=== PATIENT | male | born 1985 | race Hispanic/Latino ===

== ENCOUNTER 2016-04-12 04:29 | Emergency (ER) | payer OTHER ==
--- NOTE | 2016-04-12 05:28 | XRay Report ---
FINAL REPORT EXAM: XR KNEE 1-2V RT HISTORY: inury right knee running TECHNIQUE: 3 views of the right knee. PRIORS: None FINDINGS: Joint spaces are maintained. No fracture or dislocation. No joint effusion. Prepatellar soft tissue swelling. IMPRESSION: 1. Prepatellar soft tissue swelling.
[2016-04-12] MEDS ORDERED: NORCO 7.5/325 PO ONE (05:46)
[2016-04-12] MEDS ORDERED: TRIPLE ANTIBIOTIC TP ONE (05:50)
--- NOTE | 2016-04-12 05:52 | Emergency Department Report ---
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 Patient states he did not receive any injury to the head. Patient had no loss of consciousness. Patient was able to get up after incident. Patient states shortly after that he started to experience some pain on his right knee. Patient states swelling occurred several hours after that. Patient denies fevers/chills/nausea/vomiting/abdominal pain/chest pain or any other problems. ED Past Medical Hx - Past Medical History Previous Medical History?: No - Surgical History Past Surgical History?: No - Social History Smoking Status: Current Every Day Smoker Substance Use Type: None - Medications Home Medications: Home Medications Medication Instructions Recorded Confirmed Last Taken Type Acetaminophen/Codeine [Tylenol #3] 1 tab PO Q6H PRN #14 tab 04/12/16 Unknown Rx Cyclobenzaprine HCl [Flexeril 5 MG 5 mg PO QHS #20 tab 04/12/16 Unknown Rx TAB] Ibuprofen [Motrin] 800 mg PO Q8HR PRN #40 tablet 04/12/16 Unknown Rx ED Review of Systems ROS: Stated complaint: KNEE INJURY Other details as noted in HPI Constitutional: denies: chills, fever, malaise, weakness Eyes: denies: eye pain, eye discharge, vision change ENT: denies: ear pain, throat pain, dental pain, hearing loss, epistaxis, congestion Respiratory: denies: cough, shortness of breath, SOB with exertion, SOB at rest , wheezing Cardiovascular: denies: chest pain, palpitations Endocrine: no symptoms reported Gastrointestinal: denies: abdominal pain, nausea, vomiting, diarrhea Genitourinary: denies: urgency, dysuria, testicular pain, testicular mass Musculoskeletal: joint swelling, arthralgia. denies: back pain, myalgia Skin: denies: rash, lesions Neurological: denies: headache, weakness, numbness, paresthesias, confusion, abnormal gait Psychiatric: denies: anxiety, depression, homicidal thoughts Hematological/Lymphatic: denies: easy bleeding, easy bruising, swollen glands Physical Exam - Physical Exam Vital Signs: Vital Signs 04/12/16 04:33 Temperature 97.2 F L Pulse Rate 102 H Respiratory 16 Rate Blood Pressure 152/90 O2 Sat by Pulse 100 Oximetry Physical Exam: GENERAL: Alert and oriented x3, no apparent distress, Normal Gait, atraumatic. HEAD: Head is normocephalic and a-traumatic. EYES: Extra ocular muscles are intact. Pupils are equal, round, and reactive to light and accommodation. EARS: symetrical, atraumatic, gross auditory nml bilaterally. NOSE: Nose symetrical, Nontender,Nares appeared normal. MOUTH:Mouth is well hydrated and without lesionsPatent airways. NECK: Supple. Non edematous, No carotid bruits. No lymphadenopathy or thyromegaly. LUNGS: Symetrical with respiration, No wheezing, no rales or crackles, CTAB. HEART: S1, S2 present, regular rate and rhythm without murmur, no rubs, no gallops. ABDOMEN: No organomegaly was noted,Positive bowel sounds, soft, and non- distended. . Nontender to palpation on all Quadrants, NO CVA tenderness. EXTREMITIES/MUSCULOSKELETAL: No cyanosis, clubbing, rash, lesions or edema. Full ROM bilaterally. LE Pulses 2+ bilaterally. LE 5+ strength bilaterally. Right knee abrasion. Mild swelling, erythematous from abrasions. Full range of motion of right knee. NEUROLOGIC: No focal Deficit, Cranial nerves II through XII are grossly intact. No loss of sensation, PSYCHIATRIC: Mood is congruent with affect, denies suicidal or homicidal ideations. SKIN: Warm and dry, mild abrasion on right knee No lesions, No ulceration or induration present. ED Course Vital Signs 04/12/16 04:33 Temperature 97.2 F L Pulse Rate 102 H Respiratory 16 Rate Blood Pressure 152/90 O2 Sat by Pulse 100 Oximetry ED Medical Decision Making - Radiology Data Radiology results: report reviewed, image reviewed interpreted by me: FINAL REPORT EXAM: XR KNEE 1-2V RT HISTORY: inury right knee running TECHNIQUE: 3 views of the right knee. PRIORS: None FINDINGS: Joint spaces are maintained. No fracture or dislocation. No joint effusion. Prepatellar soft tissue swelling. IMPRESSION: 1. Prepatellar soft tissue swelling. Transcribed By: AUBREE Dictated By: NENA WILDER MD Electronically Authenticated By: NENA WILDER MD Signed Date/Time: 04/12/16 0620 - Medical Decision Making 30-year-old male presents with knee sprain from injury. ED course. Patient received 2 tabs of [place]. Right knee x-ray shows soft tissue swelling, no fracture, no dislocation, no patella dislocation or joint effusion. Discussed findings with patient. Discussed with patient follow-up with primary care physician. Discussed the patient's medication as prescribed. Knee abrasions were cleaned and dressed with topical antibiotic and wrapped with Rc bandage. Vital signs stable. Patient and in no acute distress. Critical care attestation.: If time is entered above; I have spent that time in minutes in the direct care of this critically ill patient, excluding procedure time. ED Disposition Clinical Impression: Right knee sprain Qualifiers: Encounter type: initial encounter Involved ligament of knee: unspecified ligament Qualified Code(s): S83.91XA - Sprain of unspecified site of right knee , initial encounter Abrasion of knee, right Qualifiers: Encounter type: initial encounter Qualified Code(s): S80.211A - Abrasion, right knee, initial encounter Disposition: DISCHARGED TO HOME OR SELFCARE Is pt being admited?: No Does the pt Need Aspirin: No Condition: Stable Instructions: Abrasion (ED), Knee Sprain (ED), Knee Exercises (GEN) Prescriptions: Cyclobenzaprine HCl [Flexeril 5 MG TAB] 5 mg PO QHS #20 tab Acetaminophen/Codeine [Tylenol #3] 1 tab PO Q6H PRN #14 tab PRN Reason: Pain Ibuprofen [Motrin] 800 mg PO Q8HR PRN #40 tablet PRN Reason: Pain Referrals: PRIMARY CARE, [Primary Care Provider] - 3-5 Days RUBEN HOUSTON MD [Referring] - 3-5 Days SHEILA CHONG MD [Referring] - 3-5 Days TRINIDAD AGUILAR MD [Referring] - 3-5 Days JOHN PARMAR MD [Referring] - 3-5 Days Forms: Work/School Release Form(ED), Accompanied Note Time of Disposition: 06:15
[2016-04-12 06:39] VITALS: BP 145/88
== END 2016-04-12 07:12 | disposition home or self-care (01) ==
LOC: ED 04:29
DX: S83.91XA Sprain of unspecified site of right knee, initial encounter (principal); S80.211A Abrasion, right knee, initial encounter; F17.200 Nicotine dependence, unspecified, uncomplicated; V87.8XXA Person injured in other specified noncollision transport accidents involving motor vehicle (traffic), initial encounter; Y93.9 Activity, unspecified; Y92.9 Unspecified place or not applicable; Y99.9 Unspecified external cause status
CPT/HCPCS: 99283; A6250

== ENCOUNTER 2020-06-06 08:55 | Emergency (ER) | payer OTHER ==
[2020-06-06 09:04] VITALS: BP 114/65
[2020-06-06] MEDS ORDERED: ACETAMINOPHEN 325 MG TAB PO ONE (09:06)
--- NOTE | 2020-06-06 09:09 | Emergency Department Report ---
ED Lower Extremity HPI - General Chief Complaint: Extremity Injury, Lower Stated Complaint: RT KNEE SWELLING Time Seen by Provider: 06/06/20 09:02 Source: patient, police Mode of arrival: Wheelchair Limitations: Physical Limitation - History of Present Illness Initial Comments: 34-year-old male presents to the ER today with complaints of right knee pain and swelling. 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 He states that it was mild at first but then today again while training the pain started to get worse with increased swelling. He states that the pain is mainly anterior right knee. He states that about 5 years ago he described possible patellar dislocation to the right knee but he did have to have any surgery on any physical therapy. He has not had any issues with that knee since then. He did take 400 mg of ibuprofen around 445 this morning. Pain currently is a 7 out of 10. He reports no other symptoms at this time MD Complaint: knee injury -: Last night - Related Data Previous Rx's Medication Instructions Recorded Last Taken Type Acetaminophen/Codeine [Tylenol #3] 1 tab PO Q6H PRN #14 tab 04/12/16 Unknown Rx Cyclobenzaprine HCl [Flexeril 5 MG 5 mg PO QHS #20 tab 04/12/16 Unknown Rx TAB] Ibuprofen [Motrin 800 MG tab] 800 mg PO Q8HR PRN #40 tablet 06/06/20 Unknown Rx Allergies Allergy/AdvReac Type Severity Reaction Status Date / Time diphenhydramine HCl Allergy Anaphylaxis Verified 06/06/20 08:59 [From Benadryl] Penicillins Allergy Anaphylaxis Verified 06/06/20 08:59 ED Review of Systems ROS: Stated complaint: RT KNEE SWELLING Other details as noted in HPI Comment: All other systems reviewed and negative Constitutional: denies: chills, fever Eyes: denies: eye pain, eye discharge, vision change ENT: denies: ear pain, throat pain, dental pain, hearing loss, congestion Respiratory: denies: cough, shortness of breath, SOB with exertion, wheezing Cardiovascular: denies: chest pain, palpitations Gastrointestinal: denies: abdominal pain, nausea, diarrhea, constipation, hematemesis, hematochezia Musculoskeletal: joint swelling, arthralgia Skin: denies: rash, lesions, change in color, change in hair/nails, pruritus Neurological: abnormal gait. denies: headache, weakness, numbness, paresthesias, confusion, vertigo Psychiatric: denies: anxiety, depression, auditory hallucinations, visual hallucinations, homicidal thoughts ED Past Medical Hx - Past Medical History Previous Medical History?: No - Surgical History Additional Surgical History: wisdom teeth, ingrown toenail - Social History Smoking Status: Never Smoker Substance Use Type: None - Medications Home Medications: Home Medications Medication Instructions Recorded Confirmed Last Taken Type Acetaminophen/Codeine [Tylenol #3] 1 tab PO Q6H PRN #14 tab 04/12/16 Unknown Rx Cyclobenzaprine HCl [Flexeril 5 MG 5 mg PO QHS #20 tab 04/12/16 Unknown Rx TAB] Ibuprofen [Motrin 800 MG tab] 800 mg PO Q8HR PRN #40 tablet 06/06/20 Unknown Rx ED Physical Exam - General Limitations: Physical Limitation General appearance: alert, in no apparent distress - Head Head exam: Present: atraumatic, normocephalic, normal inspection - Eye Eye exam: Present: normal appearance, PERRL, EOMI Pupils: Present: normal accommodation - Neck Neck exam: Present: normal inspection, full ROM - Respiratory Respiratory exam: Present: normal lung sounds bilaterally. Absent: respiratory distress - Cardiovascular Cardiovascular Exam: Present: regular rate, normal rhythm, normal heart sounds - Expanded Lower Extremity Exam Right Knee exam: Present: full ROM (but it is painful), tenderness (Mod patella/medial/lateral; mild posterior/suprapatellar and infrapatellar region), swelling (Mild to mainly anterior), full knee extension. Absent: abrasion, ecchymosis, crepidus, dislocation, erythema, effusion Lower Leg exam: Present: normal inspection Neuro vascular tendon exam: Present: no vascular compromise Gait: Positive: unable to bear weight - Neurological Exam Neurological exam: Present: alert, oriented X3, CN II-XII intact - Psychiatric Psychiatric exam: Present: normal affect, normal mood - Skin Skin exam: Present: intact ED Course Vital Signs 06/06/20 06/06/20 09:03 09:41 Temperature 97.9 F Pulse Rate 106 H Respiratory 20 18 Rate Blood Pressure 114/65 O2 Sat by Pulse 98 Oximetry ED Lower Extremity MDM - Radiology Data Radiology results: report reviewed Patient: GIRMA ANGELO MR#: [id number] : 1985 Acct:[id number] Age/Sex: 34 / M ADM Date: 06/06/20 Loc: ED Attending Dr: Ordering Physician: ASHIA EVERETT Date of Service: 06/06/20 Procedure(s): XR knee 3V RT Accession Number(s): [id number] cc: ASHIA EVERETT Fluoro Time In Minutes: RIGHT KNEE 3 VIEWS INDICATION / CLINICAL INFORMATION: 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 FINDINGS: BONES and JOINT(S): No acute fracture or subluxation. No significant arthritis. SOFT TISSUES: No significant abnormality. ADDITIONAL FINDINGS: None. IMPRESSION: 1. No acute findings. Signer Name: Shai Fisher MD Signed: 06/06/2020 9:29 AM Workstation Name: [id number] Transcribed By: SVETLANA Dictated By: Shai Fisher MD Electronically Authenticated By: Shai Fisher MD Signed Date/Time: 06/06/20928 DD/ 7 TD/TT: Critical care attestation.: If time is entered above; I have spent that time in minutes in the direct care of this critically ill patient, excluding procedure time. ED Disposition Clinical Impression: Knee sprain Disposition: - TO HOME OR SELFCARE Is pt being admited?: No Does the pt Need Aspirin: No Condition: Stable Instructions: Knee Sprain, Adult, [id number], Elastic Bandage and RICE Therapy Additional Instructions: Recommend that you rest, ice and elevated your right knee/leg as often as possible for the next 3-4 days. Use the Rc wrap and crutches as discussed. Take the motrin as prescribed. 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 Return to the ER if worse. Prescriptions: Ibuprofen [Motrin 800 MG tab] 800 mg PO Q8HR PRN #40 tablet PRN Reason: Pain Referrals: DARWIN CONKLIN [Other] - 3-5 Days JAYY BLAND MD [Staff Physician] - 7-10 days Forms: Work/School Release Form(ED) Time of Disposition: 09:40
--- NOTE | 2020-06-06 09:33 | XRay Report ---
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 FINDINGS: BONES and JOINT(S): No acute fracture or subluxation. No significant arthritis. SOFT TISSUES: No significant abnormality. ADDITIONAL FINDINGS: None. IMPRESSION: 1. No acute findings. Signer Name: Shai Fisher MD Signed: 06/06/2020 9:29 AM Workstation Name: [id number]
== END 2020-06-06 09:50 | disposition home or self-care (01) ==
LOC: ED 08:55
DX: S83.91XA Sprain of unspecified site of right knee, initial encounter (principal); Z98.890 Other specified postprocedural states; Z79.1 Long term (current) use of non-steroidal anti-inflammatories (NSAID); Z79.899 Other long term (current) drug therapy; Z88.0 Allergy status to penicillin; Z88.8 Allergy status to other drugs, medicaments and biological substances; X58.XXXA Exposure to other specified factors, initial encounter; Y93.89 Activity, other specified; Y92.89 Other specified places as the place of occurrence of the external cause; Y99.8 Other external cause status